=== PATIENT | female | born 1970 | race African-American/Black ===

== ENCOUNTER 2020-06-02 08:24 | Emergency (ER) | payer OTHER, BC ==
[~2020-06-02] VITALS: Ht 170.2 cm; Wt 127.3 kg
[~2020-06-02 08:24] MED LIST: BACTRIM DS 8001 TAB PO; CEPHALEXIN500 M1 PO; IBU800 M1 PO; LORTAB 5/500 501 TAB PO; NAPROSYN PO; NO HOME MEDICATIONS; NORCO 325 MG-51 TAB PO; PHENTERAMINE
[2020-06-02 08:33] VITALS: TEMP 98.5
[2020-06-02] MEDS ORDERED: FLEXERIL 1010 MG/TAB PO (10:58)
[2020-06-02 12:40] VITALS: BP 131/73; PULSE 64
== END 2020-06-02 12:40 | disposition home or self-care (01) ==
LOC: COL.ER 08:24
DX: M54.5 Low back pain (principal); V89.2XXA Person injured in unspecified motor-vehicle accident, traffic, initial encounter
CPT/HCPCS: J2270; J2550

== ENCOUNTER → 2021-04-03 | Outpatient (CLI) | payer BC ==
[~2021-04-03] MED LIST changes: +FLEXERIL 1010 MG/TAB PO
== END ==
LOC: MC.RAD 10:15
DX: Z12.31 Encounter for screening mammogram for malignant neoplasm of breast (principal)